=== PATIENT | female | born 1940 | race Caucasian/White ===

== ENCOUNTER 2019-05-01 11:24 | Observation (INO) ==
[2019-05-01] MEDS ORDERED: Ondansetron 4 MG/2 ML VIAL IVP PRN (12:39)
[2019-05-01] MEDS ORDERED: 0.9 % Sodium Chloride 500 ML IVC ONE (12:39)
[2019-05-01 13:05] LABS: Basophils % 0.2 %; Eosinophils % 0.2 %; Hemoglobin 11.3 g/dL (11.5-15.4); Immature Granulocytes % 0.6 % (0-4); Lymphocytes # 1.1 K/mcL (0.6-4.6); Lymphocytes % 6.9 %; Mean Corpuscular HGB Conc 33.2 g/dL (31.6-35.5); Mean Corpuscular Hemoglobin 29.6 pg (28.0-33.3); Mean Platelet Volume 11.4 fL (9.4-12.4); Monocytes # 1.1 K/mcL (0.0-1.3); Monocytes % 7.1 %; Neutrophils # 13.2 K/mcL (1.6-8.9); Platelet Count 262 K/mcL (140-400); Red Blood Count 3.82 M/mcL (3.82-4.97); Red Cell Distribution Width 12.9 % (11.5-14.5); White Blood Count 15.6 K/mcL (4.3-11.1)
--- NOTE | 2019-05-01 13:05 | Emergency Department Note ---
Disposition Clinical Impression: Biliary colic, SARAH (acute kidney injury) Gallstone Qualifiers: Cholecystitis presence: without cholecystitis Biliary obstruction: without biliary obstruction Qualified Code(s): K80.20 - Calculus of gallbladder without cholecystitis without obstruction Disposition: Admitted As Inpatient Condition: Good Referrals: Deven Roberts DO [Primary Care Provider] - Forms: ED Satisfaction Letter, Work/School Release Time of Disposition: 14:14 Abdominal Pain HPI - General Chief Complaint: ED Abdominal Pain Stated Complaint: Gallbladder pain Time Seen by Provider: 05/01/19 12:08 Source: patient - History of Present Illness Pain Scale: 8 - Related Data Allergies Allergy/AdvReac Type Severity Reaction Status Date / Time No Known Allergies Allergy Verified 05/01/19 11:35 Abdominal Pain PMH - Past Medical History Medical history: Reports: hypertension Female Surgical History: Reports: appendectomy, orthopedic, other 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 Psychiatric history: Reports: no psych history - Social History Smoking status: Never smoker Alcohol use: Reports: none Drug use: Reports: none Physical Exam - General Limitations: no limitations General appearance: alert, in no apparent distress Course Vital Signs Temperature 97.9 F 05/01/19 11:35 Pulse Rate 80 05/01/19 11:35 Respiratory Rate 15 05/01/19 11:35 Blood Pressure 116/74 05/01/19 11:35 O2 Sat by Pulse Oximetry 100 05/01/19 11:35 Temperature 97.9 F 05/01/19 11:35 Pulse Rate 97 05/01/19 13:38 Respiratory Rate 18 05/01/19 13:38 Blood Pressure 134/69 05/01/19 13:38 O2 Sat by Pulse Oximetry 100 05/01/19 13:38 Oxygen Delivery Oxygen Delivery Room Air Abdominal Pain - Lab Data Result diagrams: 05/01/19 12:35 05/01/19 12:35 Lab Results 05/01/19 05/01/19 Range/Units 12:35 12:35 WBC 15.6 H (4.3-11.1) K/mcL RBC 3.82 (3.82-4.97) M/mcL Hgb 11.3 L (11.5-15.4) g/dL Hct 34.0 L (35.3-44.9) % MCV 89.0 (83.0-100.0) fL MCH 29.6 (28.0-33.3) pg MCHC 33.2 (31.6-35.5) g/dL RDW 12.9 (11.5-14.5) % Plt Count 262 (140-400) K/mcL MPV 11.4 (9.4-12.4) fL Immature Gran % 0.6 (0-4) % Seg Neutrophils % 85.0 % Lymphocytes % 6.9 % Monocytes % 7.1 % Eosinophils % 0.2 % Basophils % 0.2 % Neutrophils # 13.2 H (1.6-8.9) K/mcL Lymphocytes # 1.1 (0.6-4.6) K/mcL Monocytes # 1.1 (0.0-1.3) K/mcL Eosinophils # 0.0 (0.0-0.6) K/mcL Basophils # 0.0 (0.0-0.2) K/mcL Sodium 128 L (136-145) mEq/L Potassium 3.3 L (3.5-5.1) mEq/L Chloride 92 L (98-107) mEq/L Carbon Dioxide 24 (23-29) mEq/L BUN 39 H (8-23) mg/dL Creatinine 2.16 H (0.60-1.20) mg/dL Est GFR ( Amer) 27 L (> 60) Est GFR (Non-Af Amer) 22 L (> 60) BUN/Creatinine Ratio 18 (6-26) Glucose 111 H (70-105) mg/dL Calculated Osmolality 276 L (280-300) Calcium 9.3 (8.6-10.3) mg/dL Total Bilirubin 0.7 (0.3-1.0) mg/dL Direct Bilirubin 0.3 H (0.0-0.2) mg/dL Indirect Bilirubin 0.4 (0.0-1.2) mg/dL AST 12 L (13-39) Units/L ALT 11 (7-52) Units/L Alkaline Phosphatase 136 H (34-104) Units/L Serum Total Protein 6.9 (6.4-8.9) g/dL Albumin 3.4 L (3.5-5.7) g/dL Globulin 3.5 (2.4-3.5) g/dL Albumin/Globulin Ratio 1.0 L (1.1-2.2) Lipase 13 (11-82) Units/L Attestation Statement - Attestation Attestation: I examined this patient and my medical decision-making was reviewed with the Resident Physician. I agree with the documented findings, disposition and treatment plan as described except to the extent set forth below. 78-year-old female since emergency room for right upper quadrant abdominal pain. Patient had outpatient gallbladder ultrasound this morning that showed evidence of gallstones and sludge but no secondary signs of acute cholecystitis. She sa id pain since Monday that seems be getting worse associated with some nausea. No fevers but she did feel some chills earlier. We will check lab work and then consult with GEN gallo.
[2019-05-01 13:24] LABS: Albumin 3.4 g/dL (3.5-5.7); Bilirubin,Direct 0.3 mg/dL (0.0-0.2); Bilirubin,Indirect 0.4 mg/dL (0.0-1.2); Bilirubin,Total 0.7 mg/dL (0.3-1.0); Calcium 9.3 mg/dL (8.6-10.3); Globulin 3.5 g/dL (2.4-3.5); Potassium 3.3 mEq/L (3.5-5.1); Total Protein 6.9 g/dL (6.4-8.9)
[2019-05-01] MEDS ORDERED: *HR* FentaNYL (PF) 100 MCG/2 ML VIAL IVP ONE (13:28)
--- NOTE | 2019-05-01 14:08 | Emergency Department Note ---
Disposition Clinical Impression: Biliary colic, SARAH (acute kidney injury) Gallstone Qualifiers: Cholecystitis presence: without cholecystitis Biliary obstruction: without biliary obstruction Qualified Code(s): K80.20 - Calculus of gallbladder without cholecystitis without obstruction Disposition: Admitted As Inpatient Condition: Good Referrals: Deven Roberts DO [Primary Care Provider] - Forms: ED Satisfaction Letter, Work/School Release Time of Disposition: 14:09 General Adult HPI - General Chief complaint: ED Abdominal Pain Stated complaint: Gallbladder pain Time Seen by Provider: 05/01/19 12:08 Source: patient Mode of arrival: ambulatory Limitations: no limitations Nursing Notes Reviewed: Yes Vital Signs Reviewed: Yes - History of Present Illness HPI Narrative: Patient is a 78-year-old female that presents emergency Department with complaints of right upper quadrant abdominal pain. Patient states this is been ongoing for the past 5 days. Patient states that she was seen at urgent care and was recommended for an ultrasound which was performed on an outpatient basis. Patient states that when she was informed that they may not be able to read at 4 a while that something may not be done immediately she decided to come here to the emergency department. Patient states that the pain is located in her right upper quadrant and has been worsening over the past few days. Patient states that she had a couple episodes of vomiting 2-3 days ago. Patient states that she has not had a fever. Denies any diarrhea. Patient states that she has been trying to take Tylenol but but this has not provided any significant relief. Patient states that it does not to be worse after eating. Pain Scale: 7 - Related Data Allergies Allergy/AdvReac Type Severity Reaction Status Date / Time No Known Allergies Allergy Verified 05/01/19 11:35 All systems ED: reviewed and negative except as stated. Constitutional: Denies: fever Cardiovascular: Denies: chest pain Respiratory: Denies: dyspnea Gastrointestinal: Reports: abdominal pain, nausea, vomiting. 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 Absent: respiratory distress, wheezes - Cardiovascular Cardiovascular exam: Present: regular rate, normal rhythm, normal heart sounds, +S1, +S2 - Abdominal Exam Abdominal exam: Present: soft, tenderness, normal bowel sounds, Prakash's sign Abdominal tenderness: Present: RUQ, moderate - Neurological Exam Neurological exam: Present: alert, oriented X3 - Psychiatric Psychiatric exam: Present: normal affect, normal mood - Skin Skin exam: Present: warm, dry, intact Course Vital Signs Temperature 97.9 F 05/01/19 11:35 Pulse Rate 80 05/01/19 11:35 Respiratory Rate 15 05/01/19 11:35 Blood Pressure 116/74 05/01/19 11:35 O2 Sat by Pulse Oximetry 100 05/01/19 11:35 Temperature 97.9 F 05/01/19 11:35 Pulse Rate 92 05/01/19 12:38 Respiratory Rate 18 05/01/19 12:38 Blood Pressure 136/76 05/01/19 12:38 O2 Sat by Pulse Oximetry 96 05/01/19 12:38 Oxygen Delivery Oxygen Delivery Room Air Medical Decision Making - [facility] Narrative Medical decision making narrative: Due to the patient presenting to the emergency department with reports of right upper quadrant abdominal pain and her ultrasound that was performed earlier today was reviewed which showed evidence of cholelithiasis with sludge with concerns for possible cholecystitis. Laboratory testing was obtained which does show leukocytosis as well as an acute kidney injury. Her significant elevation in the patient's creatinine beyond her baseline. Patient was given Zofran, analgesics and IV fluids. Her sodium was 128 with a potassium of 3.3. Patient will require admission to the medical service for further evaluation and m anagement of her renal function. Acute care surgery was consult the due to the findings on ultrasound. Dr. Gonzáles came to evaluate the patient in the emergency department. Called and spoke with Dr. Barrow and he is accepted the patient to their service the patient will be admitted to hospital at this time for further evaluation and management. - Medical Records Medical records reviewed: Yes I reviewed the patient's medical records. - Lab Data Lab results reviewed: Yes I reviewed the patient's lab results. Result diagrams: 05/01/19 12:35 05/01/19 12:35 Lab Results 05/01/19 05/01/19 Range/Units 12:35 12:35 WBC 15.6 H (4.3-11.1) K/mcL RBC 3.82 (3.82-4.97) M/mcL Hgb 11.3 L (11.5-15.4) g/dL Hct 34.0 L (35.3-44.9) % MCV 89.0 (83.0-100.0) fL MCH 29.6 (28.0-33.3) pg MCHC 33.2 (31.6-35.5) g/dL RDW 12.9 (11.5-14.5) % Plt Count 262 (140-400) K/mcL MPV 11.4 (9.4-12.4) fL Immature Gran % 0.6 (0-4) % Seg Neutrophils % 85.0 % Lymphocytes % 6.9 % Monocytes % 7.1 % Eosinophils % 0.2 % Basophils % 0.2 % Neutrophils # 13.2 H (1.6-8.9) K/mcL Lymphocytes # 1.1 (0.6-4.6) K/mcL Monocytes # 1.1 (0.0-1.3) K/mcL Eosinophils # 0.0 (0.0-0.6) K/mcL Basophils # 0.0 (0.0-0.2) K/mcL Sodium 128 L (136-145) mEq/L Potassium 3.3 L (3.5-5.1) mEq/L Chloride 92 L (98-107) mEq/L Carbon Dioxide 24 (23-29) mEq/L BUN 39 H (8-23) mg/dL Creatinine 2.16 H (0.60-1.20) mg/dL Est GFR ( Amer) 27 L (> 60) Est GFR (Non-Af Amer) 22 L (> 60) BUN/Creatinine Ratio 18 (6-26) Glucose 111 H (70-105) mg/dL Calculated Osmolality 276 L (280-300) Calcium 9.3 (8.6-10.3) mg/dL Total Bilirubin 0.7 (0.3-1.0) mg/dL Direct Bilirubin 0.3 H (0.0-0.2) mg/dL Indirect Bilirubin 0.4 (0.0-1.2) mg/dL AST 12 L (13-39) Units/L ALT 11 (7-52) Units/L Alkaline Phosphatase 136 H (34-104) Units/L Serum Total Protein 6.9 (6.4-8.9) g/dL Albumin 3.4 L (3.5-5.7) g/dL Globulin 3.5 (2.4-3.5) g/dL Albumin/Globulin Ratio 1.0 L (1.1-2.2) Lipase 13 (11-82) Units/L - Radiology Data Radiology results reviewed: Yes I reviewed the patient's radiology results.
--- NOTE | 2019-05-01 14:44 | Acute Care Surgery H&P ---
Date of Encounter: 05/01/19 Time of Encounter: 14:35 Assessment and Plan (1) Cholecystitis Current Visit: Yes Status: Acute 78F with acute cholecystitis as determined by physical exam (positive gates's sign). I discussed with the patient about my concerns that even though her imaging does not show it, I suspect that her gallbladder is likely and causing her sepsis (as indicated by her SARAH, dehydration and electrolyte derangments.) Although I believe she needs a cholecystectomy, with her currently being hemodynamically stable, I believe that 24hrs of antibiotics as well as appropriate hydration will benefit her intraoperatively as I suspect there is a good chance she'll convert to an open operation; NPO except ice chips (strict NPo at midnight) IvF Iv abx 3L bolus of NS IVF @ 125 NS pain control activity as tolerated [facility] plan for cholecystectomy on 05/02 The assessment and plan as outlined above was discussed with the patient and/or family members who expressed understanding and agreement. All questions were answered. History of Present Illness Chief complaint: abdominal pain HPI: Ms. Beck is a 78 year old female PMH significant for HTN who presents with 4 days of worsening abdominal pain. The pain is localized to the RUQ after eating fatty and greasy foods. The pain radiates to her back and is associated with nausea and vomiting (non bloody, non bilious). The pain rates a 10/10 with no identifiable alleviating factors at this point. The patient does comment that she is very thirsty. imaging does demonstrate evidence of cholelithiasis with no evidence of pericholecystic fluid nor gallbladder wall thickening. WBC is elevated at 15.6 and the rest of her labs show some deranagment related to dehydration (hyponatremia, elevated Cr, hypokalemia, hypochloremia); Past Med Surg Social Fam HX - Past Medical History Medical history: hypertension Psychiatric history: no psych history - Social History Smoking Status: Never smoker Smokeless Tobacco Status: No Alcohol use: none Drug use: none - Additional Family History Additional family history: non contributory Medications and Allergies Allergy/AdvReac Type Severity Reaction Status Date / Time No Known Allergies Allergy Verified 05/01/19 11:35 Review of Systems All systems PM: 12 point ROS negative besides HPI findings General Surgery Exam Initial Vital Signs Temp Pulse Resp BP Pulse Ox 97.9 F 80 15 116/74 100 05/01/19 11:35 05/01/19 11:35 05/01/19 11:35 05/01/19 11:35 05/01/19 11:35 - General physical appearance no distress - Eyes other (no scleral icterus) - Respiratory normal expansion, normal respiratory effort - Cardiovascular Cardiovascular exam: Present: RRR - Abdomen Abdomen general surgery: Present: soft, tender Abdominal Tenderness: Present: RUQ ((+)gates's sign) - Integumentary Integumentary general surgery: Present: warm and dry, no abnormal pigmentation - Neurologic Present: CN 2-12 grossly intact - Musculoskeletal Present: normal posture - Psychiatric Psychiatric general surgery: Present: A&Ox3 Results - Labs 05/01/19 12:35 05/01/19 12:35 Abnormal lab results WBC 15.6 K/mcL (4.3-11.1) H 05/01/19 12:35 Hgb 11.3 g/dL (11.5-15.4) L 05/01/19 12:35 Hct 34.0 % (35.3-44.9) L 05/01/19 12:35 Neutrophils # 13.2 K/mcL (1.6-8.9) H 05/01/19 12:35 Sodium 128 mEq/L (136-145) L 05/01/19 12:35 Potassium 3.3 mEq/L (3.5-5.1) L 05/01/19 12:35 Chloride 92 mEq/L (98-107) L 05/01/19 12:35 BUN 39 mg/dL (8-23) H 05/01/19 12:35 Creatinine 2.16 mg/dL (0.60-1.20) H 05/01/19 12:35 Est GFR ( Amer) 27 (> 60) L 05/01/19 12:35 Est GFR (Non-Af Amer) 22 (> 60) L 05/01/19 12:35 Glucose 111 mg/dL (70-105) H 05/01/19 12:35 Calculated Osmolality 276 (280-300) L 05/01/19 12:35 Direct Bilirubin 0.3 mg/dL (0.0-0.2) H 05/01/19 12:35 AST 12 Units/L (13-39) L 05/01/19 12:35 Alkaline Phosphatase 136 Units/L (34-104) H 05/01/19 12:35 Albumin 3.4 g/dL (3.5-5.7) L 05/01/19 12:35 Albumin/Globulin Ratio 1.0 (1.1-2.2) L 05/01/19 12:35 Diabetes panel 05/01/19 Range/Units 12:35 Sodium 128 L (136-145) mEq/L Potassium 3.3 L (3.5-5.1) mEq/L Chloride 92 L (98-107) mEq/L Carbon Dioxide 24 (23-29) mEq/L BUN 39 H (8-23) mg/dL Creatinine 2.16 H (0.60-1.20) mg/dL Glucose 111 H (70-105) mg/dL Calcium 9.3 (8.6-10.3) mg/dL AST 12 L (13-39) Units/L ALT 11 (7-52) Units/L Alkaline Phosphatase 136 H (34-104) Units/L Albumin 3.4 L (3.5-5.7) g/dL Calcium panel 05/01/19 Range/Units 12:35 Calcium 9.3 (8.6-10.3) mg/dL Albumin 3.4 L (3.5-5.7) g/dL Pituitary panel 05/01/19 Range/Units 12:35 Sodium 128 L (136-145) mEq/L Potassium 3.3 L (3.5-5.1) mEq/L Chloride 92 L (98-107) mEq/L Carbon Dioxide 24 (23-29) mEq/L BUN 39 H (8-23) mg/dL Creatinine 2.16 H (0.60-1.20) mg/dL Glucose 111 H (70-105) mg/dL Calcium 9.3 (8.6-10.3) mg/dL Adrenal panel 05/01/19 Range/Units 12:35 Sodium 128 L (136-145) mEq/L Potassium 3.3 L (3.5-5.1) mEq/L Chloride 92 L (98-107) mEq/L Carbon Dioxide 24 (23-29) mEq/L BUN 39 H (8-23) mg/dL Creatinine 2.16 H (0.60-1.20) mg/dL Glucose 111 H (70-105) mg/dL Calcium 9.3 (8.6-10.3) mg/dL Total Bilirubin 0.7 (0.3-1.0) mg/dL AST 12 L (13-39) Units/L ALT 11 (7-52) Units/L Alkaline Phosphatase 136 H (34-104) Units/L Albumin 3.4 L (3.5-5.7) g/dL All other labs normal. - Imaging US - abdomen: report reviewed, image reviewed
[2019-05-01] MEDS ORDERED: Ondansetron ODT 4 MG TAB.RAPDIS SL PRN (14:52)
[2019-05-01] MEDS ORDERED: *HR* Metoprolol 5 MG/5 ML VIAL IVP PRN (14:58)
[2019-05-01] MEDS: 0.9 % Sodium Chloride 1,000 ML IVC SCH ×5 (15:33→22:48)
[2019-05-01] MEDS: Piperacillin/Tazobactam 3.375 GM in 0.9 % Sodium Chloride Mini Bag 100 ML IVPB SCH (16:44)
[2019-05-01 22:59] LABS: Calcium 8.2 mg/dL (8.6-10.3); Magnesium 1.8 mg/dL (1.6-2.6); Phosphorous 3.2 mg/dL (2.7-4.5); Potassium 3.3 mEq/L (3.5-5.1)
[2019-05-01] MEDS: *HR* Heparin 5,000 UNIT/ML VIAL SQ SCH (23:41)
[2019-05-02] MEDS: Piperacillin/Tazobactam 3.375 GM in 0.9 % Sodium Chloride Mini Bag 100 ML IVPB SCH ×4 (00:32→23:31)
[2019-05-02] MEDS: *HR* Heparin 5,000 UNIT/ML VIAL SQ SCH ×3 (03:40→23:31)
[2019-05-02 04:05] LABS: Basophils % 0.1 %; Eosinophils % 0.1 %; Hematocrit 34.7 % (35.3-44.9); Immature Granulocytes % 0.4 % (0-4); Lymphocytes # 0.8 K/mcL (0.6-4.6); Lymphocytes % 5.2 %; Mean Corpuscular HGB Conc 31.7 g/dL (31.6-35.5); Mean Corpuscular Hemoglobin 28.9 pg (28.0-33.3); Mean Corpuscular Volume 91.1 fL (83.0-100.0); Monocytes # 1.1 K/mcL (0.0-1.3); Monocytes % 7.2 %; Neutrophils # 13.8 K/mcL (1.6-8.9); Platelet Count 267 K/mcL (140-400); Red Blood Count 3.81 M/mcL (3.82-4.97); Red Cell Distribution Width 13.2 % (11.5-14.5); White Blood Count 15.8 K/mcL (4.3-11.1)
--- NOTE | 2019-05-02 07:47 | Anesthesia Evaluation PreOp ---
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 Has been on IV antibiotics and fluids for past 24 hours.) Anesthesia History: No Prior Anesthetic Complications, Past Anesthesia (remote appendectomy) Alcohol Use: none Drug use: none Medications and Allergies Loratadine [Claritin] 10 mg PO DAILY 05/01/19 [History] Losartan/Hydrochlorothiazide [Losartan-Hctz 50-12.5 mg Tab] 1 each PO DAILY 05/01/19 [History] Omeprazole [PriLOSEC] 20 mg PO DAILY 05/01/19 [History] Allergy/AdvReac Type Severity Reaction Status Date / Time No Known Allergies Allergy Verified 05/01/19 11:35 - Meds/Allergy Pre-op Review Medications Reviewed: Yes Allergies Reviewed: Yes Beta Blockers on Current Med List: Yes (1500 ) Anesthesia Results - Labs 05/02/19 03:49 05/01/19 22:30 Anesthesia Exam Selected Entries 05/02/19 06:37 Temperature 98.7 F Pulse Rate 87 Respiratory Rate 18 Blood Pressure 111/73 O2 Sat by Pulse Oximetry 98 Weight: 85 kg. BMI 30 NPO (# of Hours): over 8 hours - HEENT Teeth: Edentulous Oral Opening: Greater than 3 - Cardiac Rhythm: Regular Murmur: None - Pulmonary Breath Sounds: bilateral Clear Respiratory Effort: Symmetrical Anesthesia Assess/Plan ASA Score: 2, E Level of consciousness: Cooperative Anesthetic Plan: General Monitoring Plan: Standard Monitors Recovery Plan: PACU (Discussed GA, risks. Agreed to proceed.)
[2019-05-02] MEDS ORDERED: CefOXitin 1,000 MG VIAL ONE (07:53)
[2019-05-02] MEDS ORDERED: Isovue-300 50 ML VIAL ONE (08:05)
[2019-05-02] MEDS ORDERED: *HR* Rocuronium Bromide 50 MG/5 ML VIAL ONE (08:27)
[2019-05-02] MEDS ORDERED: Neostigmine Methylsulfate 3 MG/3 ML SYRINGE ONE (08:27)
[2019-05-02] MEDS ORDERED: Dexamethasone 4 MG/ML VIAL ONE (08:27)
[2019-05-02] MEDS ORDERED: Ondansetron 4 MG/2 ML VIAL ONE (08:27)
[2019-05-02] MEDS ORDERED: Lidocaine HCL 4 ML Topical Solution (Laryng-O-Jet Kit Sterile Pak) TP ONE (08:28)
[2019-05-02] MEDS ORDERED: Lidocaine -MPF 2% 2 ML VIAL ONE (08:28)
[2019-05-02] MEDS ORDERED: *HR* FentaNYL (PF) 100 MCG/2 ML VIAL ONE (08:28)
[2019-05-02] MEDS ORDERED: *HR* Propofol 200 MG/20 ML VIAL IVP ONE (08:28)
[2019-05-02] MEDS ORDERED: *HR* PHENYLEPHRINE 1,000 MCG/10 ML SYRINGE IVP ONE (08:29)
[2019-05-02] MEDS ORDERED: EPHEDrine 50 MG/ML VIAL ONE (08:56)
[2019-05-02] MEDS ORDERED: Losartan/HCTZ 50-12.5 TABLET PO SCH (09:00)
[2019-05-02] MEDS ORDERED: Loratadine 10 MG TABLET PO SCH (09:00)
[2019-05-02] MEDS ORDERED: *HR* FentaNYL (PF) 100 MCG/2 ML VIAL IVP PRN (09:57)
[2019-05-02] MEDS ORDERED: *HR* OxyCODONE Immed Rel 5 MG TABLET PO PRN (09:57)
--- NOTE | 2019-05-02 09:58 | Operative Note ---
Date of procedure: 05/02/19 Pre-op diagnosis: Cholelithiasis and biliary colic Post-op diagnosis: other (Acute cholecystitis with gallbladder necrosis. Subhepatic abscess) Procedure: #1 laparoscopic cholecystectomy, cholangiogram (+30% for gallbladder necrosis) #2 drainage of right subhepatic abscess Anesthesia: ANGEL Surgeon: Molina Chavez Was there an certified nursing assistant present: Yes Pediatric Allergist: Krystal Ren Estimated blood loss (cc): 25 Specimen: Gallbladder and contents Condition: stable Disposition: PACU Procedure in Detail: Laparoscopic cholecystectomy and intraoperative cholangiogram (+30% for gallbladder necrosis) Drainage of subhepatic abscess Operative procedure: after informed consent and appropriate patient identification, the patient was taken to the major operating suite and placed supine position and given adequate general endotracheal anesthesia. The abdomen was prepped and draped in sterile fashion utilizing ChloraPrep standard draping techniques. Timeout was taken and the patient was identified. I made a vertical midline incision below the umbilicus and dissected down to level of fascia. I placed 2 traction stitches of 0 vicryl in the midline fascia and the abdominal cavity was entered visually. A Graham trocar was placed in the abdomen and the abdomen was insufflated to 15 mmHg pressure CO2. The gallbladder was totally encased in acute inflammatory adhesions. There was visible edema and possible along the falciform ligament wound incorporating the left side of the gallbladder. This created a sub-hepatic abscess which was completely drained. 10 minutes of dissection were necessary to expose the gallbladder. The gallbladder was visualized. The left side of the gallbladder was completely necrotic with what appeared to be areas of perforation. The gallbladder was decompressed using a decompression needle. I placemed an 11 port in the subxiphoid area and two 5 mm ports in the subcostal area. The gallbladder was grasped and elevated. A variety of blunt and sharp dissection techniques were used to isolate the cystic duct and cystic artery. The dissection was made difficult by tremendous edema and inflammation secondary to gallbladder necrosis The cystic artery was controlled with 2 surgical clips proximally and one distally and it was divided. I placed a surgical clip on the neck the gallbladder and obtained an intraoperative cholangiogram using 10 mL of Isovue. Intraoperative cholangiogram was normal. The cholangiocatheter was removed and the cystic duct was controlled with 2 surgical clips proximally and was divided. The gallbladder was removed from the gallbladder fossae using electrocautery. Dissection was difficult secondary to gallbladder necrosis. The gallbladder was removed from the abdomen through the #11 port site using a specimen bag and manual disimpaction of the gallbladder stones using a ring forceps I replaced the #11 port and irrigated with copious amounts of antibiotic containing solution. There was no evidence of bleeding or bile leak. I placed a #10 Haider-Crisostomo drain into the subhepatic space with the tip into the area that had formed the abscess. All trochars were removed. Fascia was closed with 0 Vicryl and the skin with 2-0 and 4-0 Vicry. He tolerated the procedure well and was transferred to recovery in stable condition
[2019-05-02] MEDS ORDERED: Ringers Solution, Lactated 1,000 ML ONE (10:14)
--- NOTE | 2019-05-02 10:15 | Anesthesia Evaluation Post Op ---
Date of Encounter: 05/02/19 Time of Encounter: 10:14 - Vital Signs Vital Signs: vss - Lungs Lungs: Clear Ascult./Percussion - Airway Airway: Non-obstructed - Cardiovascular Baseline Rhythm - Mental Status Mental Status: Asleep with brisk response to light stimulation - Pain Pain Scale used: Fredy (Faces) - Nausea Vomiting Nausea Vomiting: Not Present - Discharge PostOp Status: Transfer Patient to floor
[2019-05-02] MEDS ORDERED: Ondansetron ODT 4 MG TAB.RAPDIS SL PRN (10:23)
[2019-05-02] MEDS ORDERED: 0.9 % Sodium Chloride 1,000 ML IVC SCH (10:23)
[2019-05-02] MEDS ORDERED: *HR* Metoprolol 5 MG/5 ML VIAL IVP PRN (10:23)
[2019-05-02] MEDS: *HR* HYDROcodone/Acet 10/325 mg TABLET PO PRN (18:50)
[2019-05-03] MEDS: *HR* HYDROcodone/Acet 10/325 mg TABLET PO PRN ×2 (01:55→09:45)
[2019-05-03] MEDS: *HR* Heparin 5,000 UNIT/ML VIAL SQ SCH ×3 (06:55→20:04)
[2019-05-03] MEDS: Piperacillin/Tazobactam 3.375 GM in 0.9 % Sodium Chloride Mini Bag 100 ML IVPB SCH ×3 (09:44→23:40)
[2019-05-03] MEDS: Loratadine 10 MG TABLET PO SCH (09:45)
[2019-05-03] MEDS: Losartan/HCTZ 50-12.5 TABLET PO SCH (09:50)
--- NOTE | 2019-05-03 10:23 | AcuteCareSurgery Progress Note ---
Date of Encounter: 05/03/19 Time of Encounter: 10:20 - Assessment and Plan (1) Cholecystitis Current Visit: Yes Status: Acute 78F POD #1 s.p lap olman with IOC 2/2 acute cholecystitis with gallbladder necrosis and liver abscess; drain in place with serosanguinous drainage adat cont IV abx activity as tolerated pain control with current regimen will plan for d/c on 05/06 in light of necrotic gallbladder with hepatic abscess Subjective Patient reports: no new complaints, feels better, still having pain, pain is less, tolerating liquids well, afebrile Objective Vital Signs - Last 8 Hours Temp Pulse Resp BP Pulse Ox 05/03/19 04:20 97.9 F 86 17 136/82 94 Intake and Output 05/02/19 05/03/19 05/03/19 23:59 07:59 15:59 Intake Total 100 / 500 300 / 660 360 / 660 Output Total 80 / 180 80 / 80 Balance 20 / 320 220 / 580 360 / 580 Intake: IV Fluids 100 / 400 100 / 100 Zosyn 3.375 GM In 0.9 % Sodium 100 / 100 100 / 100 Chloride (Mini-Bag +) 100 ML @ 25 mls/hr IVPB Q8HR MIRELLA Rx#: [id number] Oral 200 / 560 360 / 560 Output: Wound Drainage 80 / 105 80 / 80 Right Abdomen 80 / 105 80 / 80 Other: Meal Breakfast # Voids 1 Weight 85 kg Patient Weight 05/03/19 23:59 Weight 85 kg - General physical appearance no distress - Respiratory normal expansion, normal respiratory effort - Cardiovascular Cardiovascular exam: Present: RRR - Abdomen Abdomen: Present: soft, tender (appropriately tender) - Incision Incision: Present: clean and dry, intact - Integumentary no rash, no abnormal pigmentation - Neurologic CN 2-12 grossly intact - Musculoskeletal normal posture - Labs 05/02/19 03:49 05/01/19 22:30 Consult Discharge Plan - Plan Referrals: Deven Roberts DO [Primary Care Provider] -
[2019-05-04] MEDS: *HR* Heparin 5,000 UNIT/ML VIAL SQ SCH ×3 (05:40→19:58)
[2019-05-04] MEDS: Loratadine 10 MG TABLET PO SCH (09:40)
[2019-05-04] MEDS: Losartan/HCTZ 50-12.5 TABLET PO SCH (09:40)
[2019-05-04] MEDS: Piperacillin/Tazobactam 3.375 GM in 0.9 % Sodium Chloride Mini Bag 100 ML IVPB SCH ×3 (09:41→23:02)
[2019-05-04] MEDS: *HR* HYDROcodone/Acet 10/325 mg TABLET PO PRN (09:50)
[2019-05-04] MEDS: Furosemide 20 MG/2 ML VIAL IVP SCH ×2 (10:28→19:58)
[2019-05-04 11:16] LABS: Calcium 8.8 mg/dL (8.6-10.3); Magnesium 1.7 mg/dL (1.6-2.6); Phosphorous 1.9 mg/dL (2.7-4.5); Potassium 3.8 mEq/L (3.5-5.1)
--- NOTE | 2019-05-04 12:34 | AcuteCareSurgery Progress Note ---
Date of Encounter: 05/04/19 Time of Encounter: 12:31 - Assessment and Plan (1) Cholecystitis Current Visit: Yes Status: Acute 78F POD #2 s.p lap olman with IOC 2/2 acute cholecystitis with gallbladder necrosis and liver abscess; drain in place with serosanguinous drainage; fluid overloaded, small effusions bilaterally, trouble lying flat over night to sleep; not the case prior to surgery adat cont IV abx activity as tolerated pain control with current regimen IV lasix twice today; draw labs to monitor electrolytes will plan for d/c on 05/06 in light of necrotic gallbladder with hepatic abscess Subjective Patient reports: no new complaints, feels better, other (shortness of breath when lying down; about 7L positive since admission; CXR demonstrated Bibasilar opacification, likely due to a combination of atelectasis and small) Objective Vital Signs - Last 8 Hours Temp Pulse Resp BP Pulse Ox 05/04/19 10:53 98.0 F 65 14 129/80 94 05/04/19 08:52 98.4 F 87 17 182/91 95 Intake and Output 05/03/19 05/04/19 05/04/19 23:59 07:59 15:59 Intake Total 350 / 3210 700 / 1060 360 / 1060 Output Total 30 / 130 20 / 20 Balance 320 / 3080 680 / 1040 360 / 1040 Intake: IV Fluids 100 / 2400 100 / 100 Zosyn 3.375 GM In 0.9 % Sodium 100 / 300 100 / 100 Chloride (Mini-Bag +) 100 ML @ 25 mls/hr IVPB Q8HR [facility] Rx#: [id number] Oral 250 / 810 600 / 960 360 / 960 Output: Urine 0 / 0 0 / 0 Wound Drainage 30 / 130 20 / 20 Right Abdomen 30 / 130 20 / 20 Other: Meal Dinner Breakfast Percent of Meal Consumed 95% 90% # Voids 2 1 Weight 94.26 kg Patient Weight 05/04/19 23:59 Weight 94.26 kg - General physical appearance no distress - Respiratory normal expansion, normal respiratory effort - Cardiovascular Cardiovascular exam: Present: RRR - Abdomen Abdomen: Present: soft, tender (appropriately tender) - Incision Incision: Present: clean and dry, intact - Neurologic CN 2-12 grossly intact - Psychiatric oriented to time, oriented to person - Labs 05/02/19 03:49 05/04/19 10:46 Diabetes panel 05/04/19 Range/Units 10:46 Sodium 132 L (136-145) mEq/L Potassium 3.8 (3.5-5.1) mEq/L Chloride 100 (98-107) mEq/L Carbon Dioxide 24 (23-29) mEq/L BUN 24 H (8-23) mg/dL Creatinine 1.29 H (0.60-1.20) mg/dL Glucose 110 H (70-105) mg/dL Calcium 8.8 (8.6-10.3) mg/dL Calcium panel 05/04/19 Range/Units 10:46 Calcium 8.8 (8.6-10.3) mg/dL Phosphorus 1.9 L (2.7-4.5) mg/dL Pituitary panel 05/04/19 Range/Units 10:46 Sodium 132 L (136-145) mEq/L Potassium 3.8 (3.5-5.1) mEq/L Chloride 100 (98-107) mEq/L Carbon Dioxide 24 (23-29) mEq/L BUN 24 H (8-23) mg/dL Creatinine 1.29 H (0.60-1.20) mg/dL Glucose 110 H (70-105) mg/dL Calcium 8.8 (8.6-10.3) mg/dL Adrenal panel 05/04/19 Range/Units 10:46 Sodium 132 L (136-145) mEq/L Potassium 3.8 (3.5-5.1) mEq/L Chloride 100 (98-107) mEq/L Carbon Dioxide 24 (23-29) mEq/L BUN 24 H (8-23) mg/dL Creatinine 1.29 H (0.60-1.20) mg/dL Glucose 110 H (70-105) mg/dL Calcium 8.8 (8.6-10.3) mg/dL - Imaging Chest x-ray: report reviewed, image reviewed Consult Discharge Plan - Plan Referrals: Deven Roberts DO [Primary Care Provider] -
[2019-05-05] MEDS: *HR* Heparin 5,000 UNIT/ML VIAL SQ SCH ×3 (06:10→20:00)
[2019-05-05] MEDS: Losartan/HCTZ 50-12.5 TABLET PO SCH (07:38)
[2019-05-05] MEDS: Loratadine 10 MG TABLET PO SCH (07:38)
[2019-05-05] MEDS: Furosemide 20 MG/2 ML VIAL IVP SCH ×2 (07:39→20:01)
[2019-05-05] MEDS: Piperacillin/Tazobactam 3.375 GM in 0.9 % Sodium Chloride Mini Bag 100 ML IVPB SCH ×3 (07:40→23:06)
[2019-05-05] MEDS: *HR* HYDROcodone/Acet 10/325 mg TABLET PO PRN (07:46)
--- NOTE | 2019-05-05 10:05 | AcuteCareSurgery Progress Note ---
Date of Encounter: 05/05/19 Time of Encounter: 10:03 - Assessment and Plan (1) Cholecystitis Current Visit: Yes Status: Acute 78F POD #3 s.p lap olman with IOC 2/2 acute cholecystitis with gallbladder necrosis and liver abscess; drain in place with serosanguinous drainage; fluid overloaded, small effusions bilaterally improved respiratory status after d iuresis adat cont IV abx activity as tolerated pain control with current regimen IV lasix twice today; draw labs to monitor electrolytes will plan for d/c on 05/06 in light of necrotic gallbladder with hepatic abscess Subjective Patient reports: no new complaints, feels better, afebrile Objective Vital Signs - Last 8 Hours Temp Pulse Resp BP Pulse Ox 05/05/19 03:20 98.4 F 85 18 130/74 93 Intake and Output 05/04/19 05/05/19 05/05/19 23:59 07:59 15:59 Intake Total 470 / 1974 150 / 150 Output Total 20 / 440 410 / 410 Balance 450 / 1534 -260 / -260 Intake: IV Fluids 100 / 404 100 / 100 Zosyn 3.375 GM In 0.9 % Sodium 100 / 300 100 / 100 Chloride (Mini-Bag +) 100 ML @ 25 mls/hr IVPB Q8HR [facility] Rx#: [id number] Oral 370 / 1570 50 / 50 Output: Urine 400 / 400 Wound Drainage 10 Right Abdomen 10 Other: Meal Dinner Percent of Meal Consumed 50% Stool Size Large Stool Consistency loose liquid Stool Color Brown # Voids 3 1 # Bowel Movements 1 # Bowel Movement Diapers 1 Weight 94.88 kg Patient Weight 05/05/19 23:59 Weight 94.88 kg - General physical appearance no distress - Respiratory normal expansion, normal respiratory effort - Cardiovascular Cardiovascular exam: Present: RRR - Abdomen Abdomen: Present: soft, tender (appropriately tender) - Incision Incision: Present: clean and dry, intact - Neurologic CN 2-12 grossly intact - Psychiatric oriented to time, oriented to person, oriented to place - Labs 05/02/19 03:49 05/04/19 10:46 Diabetes panel 05/04/19 Range/Units 10:46 Sodium 132 L (136-145) mEq/L Potassium 3.8 (3.5-5.1) mEq/L Chloride 100 (98-107) mEq/L Carbon Dioxide 24 (23-29) mEq/L BUN 24 H (8-23) mg/dL Creatinine 1.29 H (0.60-1.20) mg/dL Glucose 110 H (70-105) mg/dL Calcium 8.8 (8.6-10.3) mg/dL Calcium panel 05/04/19 Range/Units 10:46 Calcium 8.8 (8.6-10.3) mg/dL Phosphorus 1.9 L (2.7-4.5) mg/dL Pituitary panel 05/04/19 Range/Units 10:46 Sodium 132 L (136-145) mEq/L Potassium 3.8 (3.5-5.1) mEq/L Chloride 100 (98-107) mEq/L Carbon Dioxide 24 (23-29) mEq/L BUN 24 H (8-23) mg/dL Creatinine 1.29 H (0.60-1.20) mg/dL Glucose 110 H (70-105) mg/dL Calcium 8.8 (8.6-10.3) mg/dL Adrenal panel 05/04/19 Range/Units 10:46 Sodium 132 L (136-145) mEq/L Potassium 3.8 (3.5-5.1) mEq/L Chloride 100 (98-107) mEq/L Carbon Dioxide 24 (23-29) mEq/L BUN 24 H (8-23) mg/dL Creatinine 1.29 H (0.60-1.20) mg/dL Glucose 110 H (70-105) mg/dL Calcium 8.8 (8.6-10.3) mg/dL Consult Discharge Plan - Plan Referrals: Deven Roberts DO [Primary Care Provider] -
[2019-05-05 10:42] LABS: Basophils # 0.1 K/mcL (0.0-0.2); Basophils % 0.6 %; Eosinophils # 0.3 K/mcL (0.0-0.6); Hematocrit 33.8 % (35.3-44.9); Hemoglobin 10.8 g/dL (11.5-15.4); Immature Granulocytes % 4.5 % (0-4); Lymphocytes # 1.9 K/mcL (0.6-4.6); Lymphocytes % 16.8 %; Mean Corpuscular Hemoglobin 28.6 pg (28.0-33.3); Mean Corpuscular Volume 89.4 fL (83.0-100.0); Mean Platelet Volume 10.2 fL (9.4-12.4); Monocytes # 1.5 K/mcL (0.0-1.3); Monocytes % 12.7 %; Neutrophils # 7.1 K/mcL (1.6-8.9); Platelet Count 328 K/mcL (140-400); Red Blood Count 3.78 M/mcL (3.82-4.97); Red Cell Distribution Width 13.3 % (11.5-14.5); Segmented Neutrophils % 62.4 %; White Blood Count 11.5 K/mcL (4.3-11.1)
[2019-05-05 11:03] LABS: BUN/Creatinine Ratio 15 (6-26); Blood Urea Nitrogen 16 mg/dL (8-23); Calcium 8.3 mg/dL (8.6-10.3); Carbon Dioxide 26 mEq/L (23-29); Chloride 99 mEq/L (98-107); Glucose 190 mg/dL (70-105); Magnesium 1.5 mg/dL (1.6-2.6); Osmolality,Calculated 286 (280-300); Phosphorous 3.2 mg/dL (2.7-4.5); Potassium 3.2 mEq/L (3.5-5.1); Sodium 135 mEq/L (136-145); eGFR For African Americans > 60 (> 60); eGFR For Non-African Americans 51 (> 60)
[2019-05-06] MEDS: *HR* Heparin 5,000 UNIT/ML VIAL SQ SCH (04:54)
[2019-05-06 06:46] VITALS: BP 148/76
[2019-05-06 07:02] LABS: BUN/Creatinine Ratio 13 (6-26); Blood Urea Nitrogen 12 mg/dL (8-23); Calcium 8.5 mg/dL (8.6-10.3); Carbon Dioxide 29 mEq/L (23-29); Chloride 97 mEq/L (98-107); Glucose 129 mg/dL (70-105); Magnesium 2.1 mg/dL (1.6-2.6); Osmolality,Calculated 285 (280-300); Phosphorous 2.9 mg/dL (2.7-4.5); Potassium 4.1 mEq/L (3.5-5.1); Sodium 137 mEq/L (136-145); eGFR For African Americans > 60 (> 60); eGFR For Non-African Americans 56 (> 60)
[2019-05-06] MEDS: Piperacillin/Tazobactam 3.375 GM in 0.9 % Sodium Chloride Mini Bag 100 ML IVPB SCH (08:31)
[2019-05-06] MEDS: Loratadine 10 MG TABLET PO SCH (08:31)
[2019-05-06] MEDS: Losartan/HCTZ 50-12.5 TABLET PO SCH (08:31)
--- NOTE | 2019-05-06 09:01 | AcuteCareSurgery Progress Note ---
Date of Encounter: 05/06/19 Time of Encounter: 08:58 - Assessment and Plan (1) Cholecystitis Current Visit: Yes Status: Acute Date of procedure: 05/02/19 Pre-op diagnosis: Cholelithiasis and biliary colic Post-op diagnosis: other (Acute cholecystitis with gallbladder necrosis. S ubhepatic abscess) Procedure: #1 laparoscopic cholecystectomy, cholangiogram (+30% for gallbladder necrosis) #2 drainage of right subhepatic abscess Anesthesia: [facility] Surgeon: Molina Chavez POD #4 as above. Final pathology consistent with acute gangrenous cholecystitis with cholelithiasis and perforation. Her WILLIAM drain has been removed. She is recovering quite nicely. She is okay to discharge from a surgical standpoint. Antibiotic and discharge recommendations have been placed. Subjective Patient reports: no new complaints, pain is less, tolerating a regular diet, voiding w/o difficulty, flatus, bowel movement, afebrile Objective Vital Signs - Last 8 Hours Temp Pulse Resp BP Pulse Ox 05/06/19 06:25 98 F 96 16 148/76 95 05/06/19 04:14 98.3 F 93 17 152/72 94 Intake and Output 05/05/19 05/06/19 05/06/19 23:59 07:59 15:59 Intake Total 340 / 1310 604 / 604 Output Total 420 / 830 20 / 420 400 / 420 Balance -80 / 480 584 / 184 -400 / 184 Intake: IV Fluids 100 / 300 604 / 604 Magnesium Sulfate 2 GM In 0.9 % 104 / 104 Sodium Chloride 100 ML @ 104 mls/hr IVPB ONCE [facility] Rx#: [id number] Zosyn 3.375 GM In 0.9 % Sodium 100 / 300 100 / 100 Chloride (Mini-Bag +) 100 ML @ 25 mls/hr IVPB Q8HR [facility] Rx#: [id number] Potassium Chloride 10 mEq/100mL 400 / 400 10 meq In 100 ml @ 100 mls/hr IVPB Q1H [facility] Rx#:[id number] Oral 240 / 1010 Output: Urine 400 / 800 Urine/Stool Mix 400 / 400 Wound Drainage 20 / 20 0 / 20 Right Abdomen 30 20 / 20 0 / 20 Other: Meal Dinner Percent of Meal Consumed 50% Stool Size Large Stool Consistency loose liquid Stool Color Brown Yellow Green - General physical appearance well nourished, no distress, no pain - Eyes normal ocular movement - ENT atraumatic, normocephalic - Neck Neck exam: trachea midline - Respiratory normal expansion, clear to auscultation - Cardiovascular Cardiovascular exam: Present: RRR - Abdomen Abdomen: Present: bowel sounds present, soft, tender (expected postoperative) - Incision Incision: Present: clean and dry, intact - Integumentary no rash - Neurologic CN 2-12 grossly intact - Musculoskeletal normal gait - Psychiatric oriented to time, oriented to person, oriented to place, speech is normal, memory intact - Labs 05/05/19 10:14 05/06/19 05:42 Diabetes panel 05/05/19 05/06/19 Range/Units 10:14 05:42 Sodium 135 L 137 (136-145) mEq/L Potassium 3.2 L 4.1 D (3.5-5.1) mEq/L Chloride 99 97 L (98-107) mEq/L Carbon Dioxide 26 29 (23-29) mEq/L BUN 16 12 (8-23) mg/dL Creatinine 1.05 0.96 (0.60-1.20) mg/dL Glucose 190 H 129 H (70-105) mg/dL Calcium 8.3 L 8.5 L (8.6-10.3) mg/dL Calcium panel 05/05/19 05/06/19 Range/Units 10:14 05:42 Calcium 8.3 L 8.5 L (8.6-10.3) mg/dL Phosphorus 3.2 2.9 (2.7-4.5) mg/dL Pituitary panel 05/05/19 05/06/19 Range/Units 10:14 05:42 Sodium 135 L 137 (136-145) mEq/L Potassium 3.2 L 4.1 D (3.5-5.1) mEq/L Chloride 99 97 L (98-107) mEq/L Carbon Dioxide 26 29 (23-29) mEq/L BUN 16 12 (8-23) mg/dL Creatinine 1.05 0.96 (0.60-1.20) mg/dL Glucose 190 H 129 H (70-105) mg/dL Calcium 8.3 L 8.5 L (8.6-10.3) mg/dL Adrenal panel 05/05/19 05/06/19 Range/Units 10:14 05:42 Sodium 135 L 137 (136-145) mEq/L Potassium 3.2 L 4.1 D (3.5-5.1) mEq/L Chloride 99 97 L (98-107) mEq/L Carbon Dioxide 26 29 (23-29) mEq/L BUN 16 12 (8-23) mg/dL Creatinine 1.05 0.96 (0.60-1.20) mg/dL Glucose 190 H 129 H (70-105) mg/dL Calcium 8.3 L 8.5 L (8.6-10.3) mg/dL Consult Discharge Plan - Plan Instructions: Laparoscopic Cholecystectomy (DC) Additional Instructions: General Surgical Discharge Instructions 1. No pushing, pulling, or lifting greater than 15 lbs for 4 weeks (depending upon procedure). 2. You may remove your dressings and shower beginning today, but no tub baths, soaking, or swimming for 2 weeks. 3. No driving for two weeks unless otherwise specified and then you may resume driving when you are off narcotics and are safe to react in a car. 4. Take ibuprofen every 8 hours for discomfort. If this does not relieve discomfort, you may take the as needed narcotic (hydrocodone). Eat a small snack with pain medication as this will help reduce the risk of nausea. Take narcotics as directed. Do not take more narcotics then directed and do not share your narcotics with any other person. Do not drink alcohol while on narcotics. You can take the Zofran/ondansetron if needed for nausea or with a dose of narcotics to prevent nausea. 5. Take stool softeners (Colace) or a water based laxative (Miralax) while taking narcotics. You may hold for loose stools. 6. Report any fevers greater than 100.5F, increase abdominal discomfort, drainage that looks like pus, increased redness or pain at the surgical site, or any vomiting. 7. Report any pain in the calves, shortness of breath, or rapid heartbeat. 8. Follow-up in the office as directed. 9. Take your antibiotics as directed. Do not stop them without talking to your provider. Referrals: Deven Roberts DO [Primary Care Provider] - Jennifer Rivero, SALT CUTTER [Advanced Practice Nurse] - 08/13/19 3:30 pm Prescriptions: Amoxicillin/Clavulanate [Augmentin] 875 mg PO BIDWM 7 Days #14 tablet
--- NOTE | 2019-05-06 11:18 | Discharge Summary ---
<Jennifer Rivero L - Last Filed: 05/06/19 11:12> Date of Encounter: 05/06/19 Time of Encounter: 08:30 - Discharge Diagnosis (1) Cholecystitis Priority: Primary Status: Resolved General Surgery Exam Initial Vital Signs Temp Pulse Resp BP Pulse Ox 97.9 F 80 15 116/74 100 05/01/19 11:35 05/01/19 11:35 05/01/19 11:35 05/01/19 11:35 05/01/19 11:35 Vital Signs Temp Pulse Resp BP Pulse Ox 05/06/19 06:25 98 F 96 16 148/76 95 05/06/19 04:14 98.3 F 93 17 152/72 94 05/05/19 23:54 98.9 F 95 16 148/70 93 05/05/19 19:00 98.2 F 73 17 148/82 96 05/05/19 15:50 97.6 F 76 17 148/86 98 Intake and Output 05/05/19 05/06/19 05/06/19 23:59 07:59 15:59 Intake Total 340 / 1310 604 / 654 50 / 654 Output Total 420 / 830 20 / 420 400 / 420 Balance -80 / 480 584 / 234 -350 / 234 Intake: IV Fluids 100 / 300 604 / 654 50 / 654 Magnesium Sulfate 2 GM In 0.9 % 104 / 104 Sodium Chloride 100 ML @ 104 mls/hr IVPB ONCE ONE Rx#: [id number] Zosyn 3.375 GM In 0.9 % Sodium 100 / 300 100 / 150 50 / 150 Chloride (Mini-Bag +) 100 ML @ 25 mls/hr IVPB Q8HR [facility] Rx#: [id number] Potassium Chloride 10 mEq/100mL 400 / 400 10 meq In 100 ml @ 100 mls/hr IVPB Q1H [facility] Rx#:[id number] Oral 240 / 1010 Output: Urine 400 / 800 Urine/Stool Mix 400 / 400 Wound Drainage 0 / 20 Right Abdomen 0 / 20 Other: Meal Dinner Percent of Meal Consumed 50% Stool Size Large Stool Consistency loose liquid Stool Color Brown Yellow Green VITAL SIGNS: Reviewed. See [facility] GENERAL: In no apparent distress. HEENT: Normocephalic, atraumatic, pupils are equal and reactive, extraocular motions intact, oropharynx is pink and moist, there is no neck adenopathy or JVD noted. CHEST/RESPIRATORY: The thorax is free from signs of trauma. Lung sounds: clear to auscultation, normal respiratory effort CARDIAC: Regular rate and rhythm. Normal S1 and S2, without murmurs, gallops, or rubs. VASCULAR: No Edema. 2+ peripheral pulses. ABDOMEN: soft, expected postoperative tenderness, active bowel sounds INCISION: Surgical incision is clean, dry, and intact. There are no signs of cellulitis or infection noted. MUSCULOSKELETAL: Good range of motion of all major joints. Extremities without clubbing, cyanosis or edema. NEUROLOGIC EXAM: Alert and oriented x 3. Speech normal. Follows commands. PSYCHIATRIC: Mood normal. SKIN: No rash or lesions. - Hospital Course Hospital course: Ms. Beck is a 78 year old female who presented on 05/01/2019 with acute appendicitis. She was given IV ATBX for 24 hours prior to taking her to the OR on 05/02/2019 her laparoscopic cholecystectomy, cholangiogram, and drainage of right sub hepatic abscess by Dr. Chavez. Her postoperative course has been uncomplicated. She was kept in the hospital for continue IV antibiotics given findings intraoperatively. She is ambulating avoiding without difficulty, tolerating a diet without nausea or vomiting, vital signs are stable, and she is afebrile. We will begin discharge planning to home with a follow-up in the office in approximately 2 weeks. Her final pathology noted acute gangrenous cholecystitis with cholelithiasis and perforation. Her WILLIAM drain has been removed. - Time Spent with Patient Total time spent providing and/or coordinating discharge services: - Discharge Medications Prescriptions: New Amoxicillin/Clavulanate [Augmentin] 875 mg PO BIDWM 7 Days #14 tablet Docusate Sodium [Colace] 100 mg PO BID PRN #30 capsule PRN Reason: Contstipation Ibuprofen 800 mg PO Q8H PRN #30 tablet PRN Reason: Postsurgical pain HYDROcodone/Acet 5/325 mg [Faison 5-325 mg] 1 tab PO Q6H PRN 5 Days #20 tab PRN Reason: Pain Continued Losartan/Hydrochlorothiazide [Losartan-Hctz 50-12.5 mg Tab] 1 each PO DAILY Loratadine [Claritin] 10 mg PO DAILY Omeprazole [PriLOSEC] 20 mg PO DAILY Aspirin [Lo-Dose Aspirin EC] 81 mg PO DAILY Mv-Min/Iron/Folic/Calcium/Vitk [Women's Multivitamin Tablet] 1 each PO DAILY Home Medications: Loratadine [Claritin] 10 mg PO DAILY 05/01/19 [History] Losartan/Hydrochlorothiazide [Losartan-Hctz 50-12.5 mg Tab] 1 each PO DAILY 05/01/19 [History] Omeprazole [PriLOSEC] 20 mg PO DAILY 05/01/19 [History] Aspirin [Lo-Dose Aspirin EC] 81 mg PO DAILY 05/02/19 [History] Mv-Min/Iron/Folic/Calcium/Vitk [Women's Multivitamin Tablet] 1 each PO DAILY 05/02/19 [History] Amoxicillin/Clavulanate [Augmentin] 875 mg PO BIDWM 7 Days #14 tablet 05/06/19 [Rx] Docusate Sodium [Colace] 100 mg PO BID PRN #30 capsule 05/06/19 [Rx] HYDROcodone/Acet 5/325 mg [Faison 5-325 mg] 1 tab PO Q6H PRN 5 Days #20 tab 05/06/19 [Rx] Ibuprofen 800 mg PO Q8H PRN #30 tablet 05/06/19 [Rx] Allergies/Adverse Reactions: Allergy/AdvReac Type Severity Reaction Status Date / Time oxycodone AdvReac Mild Rash Verified 05/02/19 16:52 Date of admission: 05/01/19 15:02 Primary care physician: Marek Roberts DO Consults: 05/01/19 13:32 Consult to Surgery [CONS] Stat Consulting Provider: Acute Care Surgery Reason for Consult: Cholelithiasis concern for cholecystitis Time Notified: 13:33 Call Completed: Yes Discharging clinician: Molina Chavez (Dmitry Rivero, ENTRY LEVEL ASSISTANT MANAGER) Anticipated date of discharge: 05/06/19 Labs on day of discharge: Labs from last 24 hours 05/06/19 05:42 Sodium 137 Potassium 4.1 D Chloride 97 L Carbon Dioxide 29 BUN 12 Creatinine 0.96 Est GFR ( Amer) > 60 Est GFR (Non-Af Amer) 56 L BUN/Creatinine Ratio 13 Glucose 129 H Calculated Osmolality 285 Calcium 8.5 L Phosphorus 2.9 Magnesium 2.1 - Impressions ITS Impressions Cholangiogram,Operative 05/02/19 00:00 IMPRESSION: Normal intraoperative cholangiogram. D/ / 05/02/2019 09:53:20 Blanca Dominguez MD / Tricia Giron Interpreting Provider: Blanca Dominguez MD Chest X-Ray 05/04/19 09:02 IMPRESSION: Bibasilar opacification, likely due to a combination of atelectasis and small effusions. No overt failure. D/ / Clovis Traylor MD / Clovis Traylor MD Interpreting Provider: Clovis Traylor MD Chest X-Ray 05/05/19 10:04 IMPRESSION: 1. Slight interval improvement in appearance of bibasilar airspace disease. 2. Stable small bilateral effusions. D/ / 05/05/2019 15:21:30 Orlin Sanderson MD / constantine Interpreting Provider: Orlin Sanderson MD - Patient Status Disposition: Home, Self-Care Condition: Good Functional capacity at discharge: independent ambulation Overall status at discharge: patient is progressing back to baseline - Discharge Instructions Instructions: Laparoscopic Cholecystectomy (DC) Follow Up With: Deven Roberts DO [Primary Care Provider] - Jennifer Rivero, CRAWLER DRAGLINE OPERATOR [Advanced Practice Nurse] - 05/14/19 3:30 pm Additional Instructions: General Surgical Discharge Instructions 1. No pushing, pulling, or lifting greater than 15 lbs for 4 weeks (depending upon procedure). 2. You may remove your dressings and shower beginning today, but no tub baths, soaking, or swimming for 2 weeks. 3. No driving for two weeks unless otherwise specified and then you may resume driving when you are off narcotics and are safe to react in a car. 4. Take ibuprofen every 8 hours for discomfort. If this does not relieve discomfort, you may take the as needed narcotic (hydrocodone). Eat a small snack with pain medication as this will help reduce the risk of nausea. Take narcotics as directed. Do not take more narcotics then directed and do not share your narcotics with any other person. Do not drink alcohol while on narcotics. You can take the Zofran/ondansetron if needed for nausea or with a dose of narcotics to prevent nausea. 5. Take stool softeners (Colace) or a water based laxative (Miralax) while taking narcotics. You may hold for loose stools. 6. Report any fevers greater than 100.5F, increase abdominal discomfort, drainage that looks like pus, increased redness or pain at the surgical site, or any vomiting. 7. Report any pain in the calves, shortness of breath, or rapid heartbeat. 8. Follow-up in the office as directed. 9. Take your antibiotics as directed. Do not stop them without talking to your provider. - Diet and Activity Activity: increase activity as tolerated Diet: advance to your usual diet <Molina Chavez - Last Filed: 05/06/19 13:49> Date of Encounter: 05/06/19 General Surgery Exam Initial Vital Signs Temp Pulse Resp BP Pulse Ox 97.9 F 80 15 116/74 100 05/01/19 11:35 05/01/19 11:35 05/01/19 11:35 05/01/19 11:35 05/01/19 11:35 - Hospital Course Hospital course: Ms. Beck is a 78 year old female - Time Spent with Patient Total time spent providing and/or coordinating discharge services: Date of admission: 05/01/19 15:02 Primary care physician: Marek Roberts DO Consults: 05/01/19 13:32 Consult to Surgery [CONS] Stat Consulting Provider: Acute Care Surgery Reason for Consult: Cholelithiasis concern for cholecystitis Time Notified: 13:33 Call Completed: Yes Labs on day of discharge: Labs from last 24 hours 05/06/19 05:42 Sodium 137 Potassium 4.1 D Chloride 97 L Carbon Dioxide 29 BUN 12 Creatinine 0.96 Est GFR ( Amer) > 60 Est GFR (Non-Af Amer) 56 L BUN/Creatinine Ratio 13 Glucose 129 H Calculated Osmolality 285 Calcium 8.5 L Phosphorus 2.9 Magnesium 2.1 - Impressions ITS Impressions Cholangiogram,Operative 05/02/19 00:00 IMPRESSION: Normal intraoperative cholangiogram. D/ / 05/02/2019 09:53:20 Blanca Dominguez MD / Tricia Giron Interpreting Provider: Blanca Dominguez MD Chest X-Ray 05/04/19 09:02 IMPRESSION: Bibasilar opacification, likely due to a combination of atelectasis and small effusions. No overt failure. D/ / Clovis Traylor MD / Clovis Traylor MD Interpreting Provider: Clovis Traylor MD Chest X-Ray 05/05/19 10:04 IMPRESSION: 1. Slight interval improvement in appearance of bibasilar airspace disease. 2. Stable small bilateral effusions. D/ / 05/05/2019 15:21:30 Orlin Sanderson MD / constantine Interpreting Provider: Orlin Sanderson MD - Attending Attestation I have personally performed a face to face evaluation on this patient. I have reviewed and agree with the care plan. History and Exam by me shows: The patient is seen and evaluated on morning rounds with the acute care surgery team. The Haider-Crisostomo drain has some serosanguineous drainage that is minor. This can be removed. The patient has completed antibiotics and is ready for discharge. Molina Chavez MD FACS
== END 2019-05-06 12:53 | disposition home or self-care (01) ==
LOC: 3NENU 11:24 → EMEROOARM 11:24 → 3NENU 15:30
PROVIDERS: ADMIT Student in an Organized Health Care Education/Training Program; ATTEND Surgery